=== PATIENT | male | born 1990 | race Caucasian/White ===

== ENCOUNTER 2017-01-03 10:03 | Emergency (ER) | payer MEDICAID, SELFPAY ==
[~2017-01-03] VITALS: Ht 182.9 cm; Wt 78.3 kg
[2017-01-03] MEDS ORDERED: NAPROXEN 250 MG TAB PO ONE (11:30)
--- NOTE | 2017-01-03 11:58 | REP ---
UNILATERAL LEFT RIBS, PA CHEST VIEWS: HISTORY: Trauma. The lungs are clear. The heart is normal in size. The pulmonary vasculature is normal in appearance. The bony structure is intact. IMPRESSION: No acute disease. Signed by Emery Reza MD 01/03/2017 12:01 P
[2017-01-03] MEDS ORDERED: ZANA4TAB PO (12:14)
[2017-01-03] MEDS ORDERED: IBUP80TA PO (12:14)
[2017-01-03 12:22] VITALS: BP 133/85
== END 2017-01-03 12:27 | disposition home or self-care (01) ==
LOC: M ED 10:03
DX: S29.011A Strain of muscle and tendon of front wall of thorax, initial encounter (principal); Z87.891 Personal history of nicotine dependence; X58.XXXA Exposure to other specified factors, initial encounter; Y92.89 Other specified places as the place of occurrence of the external cause; Y93.89 Activity, other specified; Y99.9 Unspecified external cause status

== ENCOUNTER → 2020-05-31 | Outpatient (CLI) | payer SELFPAY ==
[~2020-05-31] MED LIST: IBUP80TA PO; ZANA4TAB PO
== END ==
LOC: M LABSMTC 19:04
PROVIDERS: ATTEND Pediatrics
DX: Z11.59 Encounter for screening for other viral diseases (principal)

== ENCOUNTER → 2020-06-25 | Outpatient (CLI) | payer SELFPAY | LOC: M LABSMTC 11:45 | PROVIDERS: ATTEND Pediatrics | DX: Z20.828 Contact with and (suspected) exposure to other viral communicable diseases (principal) ==

== ENCOUNTER 2020-08-11 16:11 | Emergency (ER) | payer MEDICAID, SELFPAY ==
[~2020-08-11] VITALS: Ht 182.9 cm; Wt 81.1 kg
--- OUTSIDE RECORDS SUMMARY | 2020-08-11 16:20 | CCD ---
Author Author [facility] Organization [facility] Address Unknown Phone Unavailable Care Team Providers Care Teacher Vocational Training Name Role Phone [facility], [id number] Unavailable Unavailable Re-disclosure Warning The records that you are about to access may contain information from federally-assisted alcohol or drug abuse programs. If such information is present, then the following federally mandated warning applies: This information has been disclosed to you from records protected by federal confidentiality rules (42 CFR part 2). The federal rules prohibit you from making any further disclosure of this information unless further disclosure is expressly permitted by the written consent of the person to whom it pertains or as otherwise permitted by 42 CFR part 2. A general authorization for the release of medical or other information is NOT sufficient for this purpose. The Federal rules restrict any use of the information to criminally investigate or prosecute any alcohol or drug abuse patient.The records that you are about to access may contain highly sensitive health information, the redisclosure of which is protected by Article 27-F of the [facility] Public Health law. If you continue you may have access to information: Regarding HIV / AIDS; Provided by facilities licensed or operated by the [facility] Office of Mental Health; or Provided by the [facility] Office for People With Developmental Disabilities. If such information is present, then the following [facility] mandated warning applies: This information has been disclosed to you from confidential records which are protected by state law. State law prohibits you from making any further disclosure of this information without the specific written consent of the person to whom it pertains, or as otherwise permitted by law. Any unauthorized further disclosure in violation of state law may result in a fine or half-way sentence or both. A general authorization for the release of medical or other information is NOT sufficient authorization for further disc losure. Encounters Encounter Providers Location Date Indications Data Source(s ) Outpatient Attender: [id number] [facility] 12/01/2019 07:39:19 PM EDT [facility] Outpatient Attender: [id number] [facility] 11/21/2019 12:11:56 AM EDT [facility] Insurance Providers Payer name Policy type / Coverage type Policy ID Covered green party ID Covered green party's relationship to fish Policy Fish Plan Information SELF PAY ONLY [id number] SP [id number] D [facility] P [id number] S [id number] Medicaid Dental S [id number] S [id number] MEDICAID [id number] SP [id number] MEDICAID M [id number] S [id number] MEDICAID UNAVAILABLE UNAVAILA BLE [facility]CAID) O [id number] S [id number] SELF PAY ONLY [id number] SP [id number] SELF PAY ONLY UNAVAILABLE UNAV AILABLE SELF PAY UNAVAILABLE SP UNAVAILA BLE [employer]ITY PLAN MCDO [id number] SP [id number] D [facility] O [id number] S [id number] [employer] PLAN [id number] SP [id number] Results ID Date Data Source [id number] 06/25/2020 12:00:00 AM EST [facility] Name Value Range Interpretation Code Description Data Trudy rce(s) Supporting Document(s) SARS-CoV-2 (COVID-19) RNA [Presence] in Respiratory specimen by CRYSTAL with probe detection Not Detected [facility] This lab was ordered by [facility] and reported by [employer]. ID Date Data Source [id number] 06/01/2020 12:00:00 AM EST [facility] Name Value Range Interpretation Code Description Data Trudy rce(s) Supporting Document(s) 2019-nCoV RNA XXX CRYSTAL+probe-Imp [facility] This lab was ordered by [facility] and reported by [employer] Procedure
--- OUTSIDE RECORDS SUMMARY | 2020-08-11 17:30 | CCD ---
Author Author [facility] Organization [facility] Address Unknown Phone Unavailable Care Team Providers Care Loan Secretary Name Role Phone [facility], [id number] Unavailable Unavailable Re-disclosure Warning The records [...] is protected by Article 27-F of the [facility] Public Health law. If you continue you may have access to information: Regarding HIV / AIDS; Provided by facilities licensed or operated by the [facility] Office of Mental Health; or Provided by the [facility] Office for People With Developmental Disabilities. If such information is present, then the following [facility] mandated warning applies: This information has been [...] law may result in a fine or nursing home sentence or both. A general authorization for the release of medical or other information is NOT sufficient authorization for further disc losure. Encounters Encounter Providers Location Date Indications Data Source(s ) Outpatient Attender: [id number] [facility] 12/01/2019 07:39:19 PM EDT [facility] Outpatient Attender: [id number] [facility] 11/21/2019 12:11:56 AM EDT [facility] Insurance Providers Payer name Policy type / Coverage type Policy ID Covered democrat ID Covered democrat's relationship to fish Policy Fish Plan Information SELF PAY ONLY [id number] SP [id number] D [facility] P [id number] S [id number] Medicaid Dental S [id number] S [id number] MEDICAID [id number] SP [id number] MEDICAID M [id number] S [id number] MEDICAID UNAVAILABLE UNAVAILA BLE [facility](MCAID) O [id number] S [id number] SELF PAY ONLY [id number] SP [id number] SELF PAY ONLY UNAVAILABLE UNAV AILABLE SELF PAY UNAVAILABLE SP UNAVAILA BLE [employer] COMMUNITY PLAN MCDO [id number] SP [id number] D [facility] O [id number] S [id number] [employer] PLAN [id number] SP [id number] Results ID Date Data Source [id number] 06/25/2020 12:00:00 AM EST [facility] Name Value Range Interpretation Code Description Data Trudy rce(s) Supporting Document(s) SARS-CoV-2 (COVID-19) RNA [Presence] in Respiratory specimen by CRYSTAL with probe detection Not Detected [facility] This lab was ordered by [facility] and reported by [employer]. ID Date Data Source [id number] 06/01/2020 12:00:00 AM EST [facility] Name Value Range Interpretation Code Description Data Trudy rce(s) Supporting Document(s) 2019-nCoV RNA XXX CRYSTAL+probe-Imp [facility] This lab was ordered by [facility] and reported by [employer] Procedure
[2020-08-11] MEDS ORDERED: NS 1,000 ML IV ONE (18:00)
[2020-08-11] MEDS: GASTROGRAFIN SOLUTION 30ML PO SCH ×2 (18:50→19:20)
[2020-08-11] MEDS ORDERED: ACETAMINOPHEN 500 MG TAB PO ONE (19:00)
[2020-08-11 19:23] LABS: BASO % 0.6 % (0.0-1.0); EOS # 0.1 10^3/uL (0.0-0.5); EOS % 0.8 % (0.0-3.0); HEMATOCRIT 44.4 % (42.0-52.0); HEMOGLOBIN 14.8 g/dl (13.5-17.5); LYMPH # 1.8 10^3/uL (1.5-5.0); LYMPH % 27.5 % (24.0-44.0); MEAN CORPUSCULAR HEMOGLOBIN 31.4 pg (27.0-33.0); MEAN CORPUSCULAR HGB CONC 33.3 g/dl (32.0-36.5); MEAN CORPUSCULAR VOLUME 94.1 fl (80.0-96.0); MONO # 0.6 10^3/uL (0.0-0.8); MONO % 8.4 % (2.0-8.0); NEUTROPHILS # 4.1 10^3/uL (1.5-8.5); NEUTROPHILS % 62.4 % (36.0-66.0); PLATELET COUNT, AUTOMATED 325 10^3/uL (150-450); RED BLOOD COUNT 4.72 10^6/uL (4.30-6.10); WHITE BLOOD COUNT 6.5 10^3/uL (4.0-10.0)
[2020-08-11 19:43] LABS: ALBUMIN 4.5 GM/DL (3.2-5.2); ALT/SGPT 21 U/L (12-78); AMYLASE 43 U/L (25-115); BILIRUBIN,DIRECT < 0.1 MG/DL (0.0-0.2); BILIRUBIN,TOTAL 0.3 MG/DL (0.2-1.0); BLOOD UREA NITROGEN 13 MG/DL (7-18); CALCIUM LEVEL 9.4 MG/DL (8.5-10.1); CARBON DIOXIDE LEVEL 25 MEQ/L (21-32); CHLORIDE LEVEL 109 MEQ/L (98-107); GLOMERULAR FILTRATION RATE > 60.0 (>60); GLUCOSE, FASTING 91 MG/DL (70-100); LIPASE 59 U/L (73-393); POTASSIUM SERUM 4.8 MEQ/L (3.5-5.1); SODIUM LEVEL 140 MEQ/L (136-145); TOTAL PROTEIN 7.5 GM/DL (6.4-8.2)
[2020-08-11 19:51] LABS: ERYTHROCYTE SEDIMENTATION RATE 2 mm/hr (0-15)
[2020-08-11] MEDS ORDERED: ISOVUE-370 76% 100ML VIAL As Ordered ONE (20:18)
[2020-08-11 20:41] VITALS: BP 138/72
--- NOTE | 2020-08-11 20:59 | REPVR ---
PROCEDURE INFORMATION: Exam: CT Abdomen And Pelvis With Contrast Exam date and time: 08/11/2020 8:19 PM Age: 29 years old Clinical indication: Abdominal pain; Additional info: Abd pain, diarrhea, fhx crohns TECHNIQUE: Imaging protocol: Computed tomography of the abdomen and pelvis with contrast. Axial, coronal and sagittal reformatted images were created and reviewed. Radiation optimization: All CT scans at this facility use at least one of these dose optimization techniques: automated exposure control; mA and/or kV adjustment per patient size (includes targeted exams where dose is matched to clinical indication); or iterative reconstruction. Contrast material: ISOVUE 370; Contrast volume: 100 ml; Contrast route: INTRAVENOUS (IV); COMPARISON: No relevant prior studies available. FINDINGS: Liver: Unremarkable. Gallbladder and bile ducts: No radiodense gallstones. No biliary ductal dilatation. Pancreas: Unremarkable. Spleen: Unremarkable. Adrenal glands: Normal. No mass. Kidneys and ureters: No mass. No radiodense calculi. No hydronephrosis. Stomach and bowel: No bowel wall thickening. No obstruction. No pneumatosis. Appendix: Normal. Intraperitoneal space: No free fluid. No organized fluid collection. No free air. Vasculature: Unremarkable. No aneurysm. Lymph nodes: No pathologically enlarged lymph nodes. Urinary bladder: Unremarkable as visualized. Reproductive: Unremarkable. Bones/joints: No acute osseous abnormality. Soft tissues: Unremarkable. IMPRESSION: No CT evidence of acute intra-abdominal or pelvic pathology. Electronically signed by: Sriram Ortiz On 08/11/2020 20:59:22 PM
== END 2020-08-11 21:44 | disposition home or self-care (01) ==
LOC: M ED 16:11
DX: R10.32 Left lower quadrant pain (principal); R19.7 Diarrhea, unspecified; Z11.52 Encounter for screening for COVID-19
CPT/HCPCS: 74177; 80048; 80076; 81001; 82150; 83690; 85025; 85652; 86140; 87804; 87880; 96360; 99284; Q9963; Q9967; U0003

== ENCOUNTER 2020-08-28 15:17 | Emergency (ER) | payer MEDICAID ==
[~2020-08-28] VITALS: Ht 182.9 cm; Wt 81.7 kg
--- NOTE | 2020-08-28 16:18 | REP ---
INDICATION: pain, trauma COMPARISON: None. TECHNIQUE: AP, lateral, bilateral oblique and sunrise views. FINDINGS: The osseous structures and joint spaces are intact and normal. There is no evidence for acute fracture or dislocation. No joint effusion is appreciated. Surrounding soft tissues are unremarkable. No subcutaneous emphysema or radiodense foreign body. IMPRESSION: Normal examination. No acute fracture or dislocation. <Electronically signed by Rick Jung > 08/28/20 0845
[2020-08-28 16:35] VITALS: BP 132/75
== END 2020-08-28 16:37 | disposition home or self-care (01) ==
LOC: M ED 15:17
DX: S89.92XA Unspecified injury of left lower leg, initial encounter (principal); W22.8XXA Striking against or struck by other objects, initial encounter; Y92.099 Unspecified place in other non-institutional residence as the place of occurrence of the external cause; Y93.9 Activity, unspecified; Y99.9 Unspecified external cause status; F17.200 Nicotine dependence, unspecified, uncomplicated

== ENCOUNTER 2021-01-01 14:46 | Emergency (ER) | payer MEDICAID, OTHER ==
[~2021-01-01] VITALS: Ht 182.9 cm; Wt 86.4 kg
[2021-01-01 17:39] LABS: HEMATOCRIT 45.4 % (42.0-52.0); MEAN CORPUSCULAR VOLUME 93.8 fl (80.0-96.0); PLATELET COUNT, AUTOMATED 319 10^3/uL (150-450); RED BLOOD COUNT 4.84 10^6/uL (4.30-6.10); WHITE BLOOD COUNT 5.8 10^3/uL (4.0-10.0)
[2021-01-01] MEDS ORDERED: KETOROLAC TROMETHAMINE 10 MG TAB PO ONE (18:05)
[2021-01-01] MEDS ORDERED: KETO10TAB PO (18:06)
[2021-01-01 18:12] VITALS: BP 139/93
== END 2021-01-01 18:16 | disposition home or self-care (01) ==
LOC: M ED 14:46
DX: R07.89 Other chest pain (principal); F17.200 Nicotine dependence, unspecified, uncomplicated

== ENCOUNTER → 2021-03-23 | Outpatient (REF) | payer OTHER ==
[~2021-03-23] MED LIST changes: +KETO10TAB PO
[2021-03-23 17:01] LABS: HEMATOCRIT 41.4 % (42.0-52.0); HEMOGLOBIN 13.9 g/dl (13.5-17.5); MEAN CORPUSCULAR HEMOGLOBIN 31.3 pg (27.0-33.0); MEAN CORPUSCULAR HGB CONC 33.6 g/dl (32.0-36.5); MEAN CORPUSCULAR VOLUME 93.2 fl (80.0-96.0); PLATELET COUNT, AUTOMATED 316 10^3/uL (150-450); RED BLOOD COUNT 4.44 10^6/uL (4.30-6.10); WHITE BLOOD COUNT 6.4 10^3/uL (4.0-10.0)
[2021-03-23 17:31] LABS: ALT/SGPT 23 U/L (12-78); BILIRUBIN,TOTAL 0.4 MG/DL (0.2-1.0); BLOOD UREA NITROGEN 12 MG/DL (7-18); CALCIUM LEVEL 9.4 MG/DL (8.5-10.1); CARBON DIOXIDE LEVEL 28 MEQ/L (21-32); CHLORIDE LEVEL 110 MEQ/L (98-107); CREATININE FOR GFR 0.84 MG/DL (0.70-1.30); FREE T4 1.12 NG/DL (0.76-1.46); GLOMERULAR FILTRATION RATE > 60.0 (>60); GLUCOSE, FASTING 89 MG/DL (70-100); POTASSIUM SERUM 4.4 MEQ/L (3.5-5.1); SODIUM LEVEL 142 MEQ/L (136-145); TOTAL PROTEIN 6.8 GM/DL (6.4-8.2)
== END ==
LOC: M SFHCCLAY 09:52
PROVIDERS: ATTEND Family Medicine
DX: R10.9 Unspecified abdominal pain (principal); K92.1 Melena; F32.2 Major depressive disorder, single episode, severe without psychotic features